=== PATIENT | female | born 1985 | race Native Hawaiian/Other Pacific Islander ===

== ENCOUNTER 2017-03-29 13:36 | Emergency (ER) | payer BC ==
[2017-03-29 13:42] VITALS: RESP 18
[2017-03-29] MEDS ORDERED: Sodium Chloride 0.9% 1,000 ML IV STA (13:54)
[2017-03-29] MEDS ORDERED: Iohexol 240 (50 ml) PO ONE (14:01)
[2017-03-29] MEDS ORDERED: Iohexol 240 (50 ml) ONE (14:07)
[2017-03-29 14:30] LABS: BASO % 0.5 % (0.0-2.0); EOS # 0.1 K/uL (0.0-0.7); HEMATOCRIT 38.1 % (34.0-47.0); LYMPH % 18.6 % (20.0-40.0); MEAN CELL VOLUME 86.5 fl (81.0-99.0); MEAN CORPUSCULAR HEMOGLOBIN 29.3 pg (27.0-31.0); MEAN CORPUSCULAR HGB CONC 33.8 g/dL (33.0-37.0); MEAN PLATELET VOLUME 7.4 fl (7.2-11.7); MONO # 0.4 K/uL (0.0-0.8); NEUT % 72.9 % (50.0-75.0); RED CELL DISTRIBUTION WIDTH 13.3 % (11.5-14.5); WHITE BLOOD COUNT 5.4 K/uL (4.8-10.8)
[2017-03-29 14:39] LABS: ALB/GLOB RATIO 1.6 (1.0-2.1); ALKALINE PHOSPHATASE 49 U/L (38-126); ALT/SGPT 25 U/L (9-52); AST/SGOT 21 U/L (14-36); BILIRUBIN,TOTAL 1.6 mg/dl (0.2-1.3); BLOOD UREA NITROGEN 9 mg/dl (7-17); CARBON DIOXIDE 24 mmol/L (22-30); CHLORIDE 106 mmol/L (98-107); GFR AFRICAN-AMERICAN > 60; GLUCOSE,RANDOM 91 mg/dL (65-105); LIPASE 78 U/L (23-300); SODIUM 143 mmol/l (132-148); TOTAL PROTEIN 6.8 G/DL (6.3-8.2)
--- NOTE | 2017-03-29 15:16 | ED PDOC ---
HPI: Abdomen Time Seen by Provider: 03/29/17 13:53 Chief Complaint (Nursing): Abdominal Pain Chief Complaint (Provider): Abdominal Pain History Per: Patient History/Exam Limitations: no limitations Onset/Duration Of Symptoms: Hrs (since morning) Current Symptoms Are (Timing): Still Present Quality Of Discomfort: Cramping Associated Symptoms: Chills (since this morning) Additional Complaint(s): Patient is a 31 y/o female presenting to the ED with no past medical history, complaining of abdominal pain since this morning. She describes the pain as "crampy" that began in the lower abdomen before radiating to the upper abdomen. Patient notes experiencing chills this morning, as well as associated symptoms of nausea and soft stools. She denies abnormal vaginal bleeding or urinary symptoms, and claims her last period was on February 19 (G0, P0). PCP: FAMILY PROVIDER,NO Abnormal Vaginal Bleeding: No Past Medical History Reviewed: Historical Data, Nursing Documentation, Vital Signs Vital Signs: Last Vital Signs Temp 98 F 03/29/17 17:04 Pulse 67 03/29/17 17:04 Resp 18 03/29/17 17:04 BP 101/70 03/29/17 17:04 Pulse Ox 99 03/29/17 17:04 - Medical History PMH: No Chronic Diseases - Surgical History Surgical History: No Surg Hx - Family History Family History: States: No Known Family Hx - Social History Current smoker - smoking cessation education provided: No Alcohol: None Drugs: Denies - Allergies Allergies/Adverse Reactions: Allergies Allergy/AdvReac Type Severity Reaction Status Date / Time No Known Allergies Allergy Verified 03/29/17 13:38 Review of Systems ROS Statement: Except As Marked, All Systems Reviewed And Found Negative Constitutional: Positive for: Chills Gastrointestinal: Positive for: Nausea, Abdominal Pain, Other (Soft stools) Genitourinary Female: Negative for: Dysuria, Frequency, Incontinence, Hematuria , Vaginal Bleeding Physical Exam - Reviewed Nursing Documentation Reviewed: Yes Vital Signs Reviewed: Yes - Physical Exam Appears: Positive for: No Acute Distress Head Exam: Positive for: ATRAUMATIC, NORMAL INSPECTION, NORMOCEPHALIC Skin: Positive for: Normal Color, Warm, Dry Cardiovascular/Chest: Positive for: Regular Rate, Rhythm. Negative for: Murmur Respiratory: Positive for: Normal Breath Sounds. Negative for: Respiratory Distress Gastrointestinal/Abdominal: Positive for: Soft, Tenderness (mild tenderness lower greater than upper but non focal). Negative for: Normal Exam Neurologic/Psych: Positive for: Alert, Oriented (x3) - Laboratory Results Result Diagrams: 03/29/17 14:20 03/29/17 14:20 - ECG O2 Sat by Pulse Oximetry: 100 (RA) Pulse Ox Interpretation: Normal Medical Decision Making Medical Decision Making: Time: 1354 Initial Impression: abdominal pain Initial Plan: -Labs -ED Urine -ED Urine Dipstick -Sodium Chloride 0.9%, IV 1000ml/hr -Iohexol 50ml PO -Zofran 4mg IV -US abdomen -US pelvis/transvag -Reevaluation *If unremarkable may need CT imaging, will endorse patient to Dr. Ospina at 3PM 1504 -CT abdomen and pelvis -Reevaluation Scribe Attestation: Documented by Martha Vitale, acting as a scribe for Mele Borden III, DO Provider Scribe Attestation: All medical record entries made by the Scribe were at my direction and personally dictated by me. I have reviewed the chart and agree that the record accurately reflects my personal performance of the history, physical exam, medical decision making, and the department course for this patient. I have also personally directed, reviewed, and agree with the discharge instructions and disposition. Disposition - Clinical Impression Clinical Impression: Abdominal pain - Disposition Referrals: Deanne Alex Castile [Outside] Disposition: Transfer of Care (Dr. Ospina) Disposition Time: 15:00 Condition: IMPROVED Additional Instructions: RETURN TO ER IMMEDIATELY IF SYMPTOMS RETURN DRINK PLENTY OF HYDRATING FLUIDS WITH A BLAND DIET FOR THE NEXT 48 HOURS FOLLOW UP WITH A PRIMARY CARE PHYSICIAN IN 2-3 DAYS FOR REEVALUATION Instructions: Abdominal Pain (ED) Forms: [employer] (Slovenian) Patient Signed Over To: Dawn Ospina Handoff Comments: labs and imaging, dispo/diagnosis
--- NOTE | 2017-03-29 15:34 | ED PDOC ---
- Laboratory Results Result Diagrams: 03/29/17 14:20 03/29/17 14:20 - ECG O2 Sat by Pulse Oximetry: 100 (RA) Pulse Ox Interpretation: Normal Medical Decision Making Medical Decision Makin -Received endorsement from Dr Borden -patient with abdominal pain, pending ER workup, reassessment, and final ER disposition. 1515 -evaluation: patient asymptomatic, and has pending US and CT results. Lab findings discussed with patient 15:40 -Abdomen US FINDINGS: LIVER: Measures 14.7 cm. Normal echogenicity of the liver parenchyma. No mass. No intrahepatic bile duct dilatation. GALLBLADDER: Unremarkable. No gallstones. COMMON BILE DUCT: Measures 2.6 mm. No stones. No dilatation. PANCREAS: Unremarkable as visualized. No mass. No ductal dilatation. RIGHT KIDNEY: Measures 10.2cm. Normal echogenicity. No calculus, mass, or hydronephrosis. LEFT KIDNEY: Measures 11.0cm. Normal echogenicity. No calculus, mass, or hydronephrosis. SPLEEN: Normal in size and contour. No mass. AORTA: No aneurysmal dilatation. IVC: Unremarkable. OTHER FINDINGS: None. IMPRESSION: Unremarkable abdominal sonogram. 1556 -US Abdomen/Pelvis/Transvaginal FINDINGS: UTERUS: Measures 8.7 x 4.6 x 4.4 cm. Normal in size and appearance. No fibroid or other mass lesion seen. ENDOMETRIUM: Measures 11.6 mm in diameter. Unremarkable. CERVIX: A nabothian cyst is seen at the upper posterior cervix. RIGHT OVARY: Measures 2.3 x 2.6 x 2.8 cm. No solid mass. Normal flow. LEFT OVARY: Measures 2.4 x 1.9 x 1 point some cm. No solid mass. Normal flow. FREE FLUID: No significant free fluid noted. OTHER FINDINGS: None. IMPRESSION: Unremarkable pelvic ultrasound. DW pt findings. On reevaluation the pain has not recurred and at this time she declines a CT scan. Abdominal exam benign and patient had no emergently significant lab abnormalities. Advised that she can return at any time if pain recurs. Otherwise she should follow up with PMD in 48 hours for reevaluation. ( [facility] if no doctor). Pt eager to go home. Scribe Attestation: Documented by Martha Vitale, acting as a scribe for Dawn Ospina MD Provider Scribe Attestation: All medical record entries made by the Scribe were at my direction and personally dictated by me. I have reviewed the chart and agree that the record accurately reflects my personal performance of the history, physical exam, medical decision making, and the department course for this patient. I have also personally directed, reviewed, and agree with the discharge instructions and disposition. Disposition - Clinical Impression Clinical Impression: Abdominal pain - POA Present On Arrival: None - Disposition Referrals: Deanne Amaya [Outside] Disposition: Routine/Home Disposition Time: 16:45 Condition: IMPROVED Additional Instructions: RETURN TO ER IMMEDIATELY IF SYMPTOMS RETURN DRINK PLENTY OF HYDRATING FLUIDS WITH A BLAND DIET FOR THE NEXT 48 HOURS FOLLOW UP WITH A PRIMARY CARE PHYSICIAN IN 2-3 DAYS FOR REEVALUATION Instructions: Abdominal Pain (ED) Forms: [employer] (Portuguese)
--- NOTE | 2017-03-29 15:42 | US ---
HISTORY: upper abd pain, nausea COMPARISON: None. TECHNIQUE: Sonographic evaluation of the abdomen. FINDINGS: LIVER: Measures 14.7 cm. Normal echogenicity of the liver parenchyma. No mass. No intrahepatic bile duct dilatation. GALLBLADDER: Unremarkable. No gallstones. COMMON BILE DUCT: Measures 2.6 mm. No stones. No dilatation. PANCREAS: Unremarkable as visualized. No mass. No ductal dilatation. RIGHT KIDNEY: Measures 10.2cm. Normal echogenicity. No calculus, mass, or hydronephrosis. LEFT KIDNEY: Measures 11.0cm. Normal echogenicity. No calculus, mass, or hydronephrosis. SPLEEN: Normal in size and contour. No mass. AORTA: No aneurysmal dilatation. IVC: Unremarkable. OTHER FINDINGS: None. IMPRESSION: Unremarkable abdominal sonogram.
--- NOTE | 2017-03-29 16:44 | US ---
HISTORY: pelvic pain COMPARISON: None available. TECHNIQUE: Transabdominal and transvaginal pelvic ultrasound was performed for evaluation of pain. FINDINGS: UTERUS: Measures 8.7 x 4.6 x 4.4 cm. Normal in size and appearance. No fibroid or other mass lesion seen. ENDOMETRIUM: Measures 11.6 mm in diameter. Unremarkable. CERVIX: A nabothian cyst is seen at the upper posterior cervix. RIGHT OVARY: Measures 2.3 x 2.6 x 2.8 cm. No solid mass. Normal flow. LEFT OVARY: Measures 2.4 x 1.9 x 1 point some cm. No solid mass. Normal flow. FREE FLUID: No significant free fluid noted. OTHER FINDINGS: None. IMPRESSION: Unremarkable pelvic ultrasound.
[2017-03-29 17:05] VITALS: BP 101/70; PULSE 67; TEMP 98
[2017-03-30 17:46] VITALS: O2SAT 100
== END 2017-03-29 17:08 | disposition home or self-care (01) ==
LOC: H.ER 13:36
DX: R10.9 Unspecified abdominal pain (principal)